=== PATIENT | male | born 1975 | race African-American/Black ===

== ENCOUNTER 2018-01-21 23:16 | Emergency (ER) | payer BC, OTHER ==
[~2018-01-21] VITALS: Ht 185.4 cm; Wt 120.2 kg
--- NOTE | 2018-01-21 23:55 | NUR ---
TO ROOM 4B FOR ER EVAL
--- NOTE | 2018-01-22 00:05 | NUR ---
ERMD AT BEDSIDE TALKING TO PT
== END 2018-01-22 00:30 | disposition home or self-care (01) ==
LOC: ER 23:18
DX: J20.8 Acute bronchitis due to other specified organisms (principal); B96.89 Other specified bacterial agents as the cause of diseases classified elsewhere
CPT/HCPCS: A4663

== ENCOUNTER 2020-09-13 06:05 | Emergency (ER) | payer BC, OTHER ==
[~2020-09-13] VITALS: Ht 185.4 cm; Wt 117.9 kg
--- NOTE | 2020-09-13 06:38 | NUR ---
at bedside for assessment
[2020-09-13] MEDS ORDERED: IBUPROFEN 600 MG TABLET PO ONE (07:00)
[2020-09-13] MEDS ORDERED: LIDOCAINE 5% PATCH TD ONE ×2 (07:00→07:15)
[2020-09-13] MEDS ORDERED: ACETAMINOPHEN 325 MG TABLET PO ONE (07:00)
[2020-09-13] MEDS ORDERED: IBUPROFEN 600 MG TABLET ONE (07:15)
[2020-09-13] MEDS ORDERED: ACETAMINOPHEN 325 MG TABLET ONE (07:16)
[2020-09-13 07:22] LABS: *BILIRUBIN,URIN NEGATIVE (NEGATIVE); *BLOOD, URINE NEGATIVE (NEGATIVE); *CLARITY,URINE CLEAR (CLEAR); *COLOR,URINE YELLOW (YELLOW); *KETONES,URINE NEGATIVE (NEGATIVE); *UROBILINOGEN,URINE 0.2 E.U./dl (NORMAL); LEUKOCYTE ESTERASE ,URINE NEGATIVE (NEGATIVE); NITRITE, URINE NEGATIVE (NEGATIVE); PH,URINE 5.5 (5.0-8.0); UGLUCOSE NEGATIVE (NEGATIVE)
--- NOTE | 2020-09-13 07:33 | NUR ---
PT WAS D/C'd TO HOME AFTER DR WILSON EVALUATION D/C INSTRUCTIONS GIVEN TO THE PT BY DR WILSON.
[2020-09-13 07:36] VITALS: BP 153/85
== END 2020-09-13 07:41 | disposition home or self-care (01) ==
LOC: ER 06:05
DX: M54.5 Low back pain (principal); X50.0XXA Overexertion from strenuous movement or load, initial encounter; Y93.B2 Activity, push-ups, pull-ups, sit-ups; Y92.019 Unspecified place in single-family (private) house as the place of occurrence of the external cause; R03.0 Elevated blood-pressure reading, without diagnosis of hypertension
CPT/HCPCS: A4663

== ENCOUNTER 2022-10-05 09:04 | Emergency (ER) | payer BC, OTHER ==
[~2022-10-05] VITALS: Ht 185.4 cm; Wt 120.2 kg
--- NOTE | 2022-10-05 09:34 | NUR ---
PT SEEN AND EVALUATED BY DR THORNTON
[2022-10-05] MEDS ORDERED: NAPR-1164 PO (10:40)
[2022-10-05] MEDS ORDERED: CYCL10TA9 PO (10:40)
[2022-10-05 10:49] VITALS: BP 120/78
--- NOTE | 2022-10-05 10:50 | NUR ---
Patient discharged to home in stable condition. Written and verbal after care instructions given. Patient verbalizes understanding of instructions. Stressed follow up or return to ER for worsening s/s.
== END 2022-10-05 10:50 | disposition home or self-care (01) ==
LOC: ER 09:04
DX: S33.5XXA Sprain of ligaments of lumbar spine, initial encounter (principal); S23.3XXA Sprain of ligaments of thoracic spine, initial encounter; V49.9XXA Car occupant (driver) (passenger) injured in unspecified traffic accident, initial encounter; Y92.410 Unspecified street and highway as the place of occurrence of the external cause
CPT/HCPCS: 72072; 72100; A4663

== ENCOUNTER 2023-09-11 23:43 | Emergency (ER) | payer OTHER ==
[~2023-09-11] VITALS: Ht 185.4 cm; Wt 108.9 kg
[~2023-09-11 23:43] MED LIST: CYCL10TA9 PO; NAPR-1164 PO
[2023-09-12] MEDS ORDERED: CHOLECALCIFEROL 1,000 UNIT TABLET PO SCH (00:30)
[2023-09-12] MEDS ORDERED: CHOLECALCIFEROL 1,000 UNIT TABLET ONE (00:39)
[2023-09-12] MEDS ORDERED: ACET1TAB23 PO (00:45)
[2023-09-12 00:47] LABS: EOSINOPHILS # (AUTO) 0.1 K/uL (0.0-0.7); EOSINOPHILS % (AUTO) 1.3 % (0.0-7.0); HEMATOCRIT 46.8 % (36.7-47.1); HEMOGLOBIN 15.8 g/dL (12.5-16.3); LYMPHOCYTES # (AUTO) 0.6 K/uL (0.8-4.8); MEAN CORPUSCULAR HEMOGLOBIN 29.8 uug (23.8-33.4); MEAN CORPUSCULAR HGB CONC 34 g/dL (32.5-36.3); MEAN CORPUSCULAR VOLUME 88.2 fL (73.0-96.2); MONOCYTES # (AUTO) 0.6 K/uL (0.1-1.30); MONOCYTES % (AUTO) 11.8 % (0.0-11.0); NEUTROPHILS # (AUTO) 3.5 K/uL (1.8-8.9); NEUTROPHILS % (AUTO) 73.9 % (38.5-71.5); PLATELET COUNT (AUTO) 169 K/uL (152-348); RED CELL DISTRIBUTION WIDTH 13.6 % (12.1-16.2); WHITE BLOOD COUNT (AUTO) 4.8 K/uL (3.6-10.2)
[2023-09-12 00:56] LABS: DIFFERENTIAL COMMENT 1
[2023-09-12 00:59] LABS: CALCIUM 9.1 mg/dL (8.5-10.1); CARBON DIOXIDE 29 mmol/L (21-32); CHLORIDE 101 mmol/L (98-107); CREATININE 1.3 mg/dL (0.6-1.3); GLUCOSE 127 mg/dL (74-106); POTASSIUM 4.2 mmol/L (3.5-5.1); SODIUM SERUM 135 mmol/L (136-145); UREA NITROGEN, BLOOD 14 mg/dL (7-18)
[2023-09-12 01:15] LABS: *BILIRUBIN,URIN NEGATIVE (NEGATIVE); *BLOOD, URINE 1+ (NEGATIVE); *CLARITY,URINE CLEAR (CLEAR); *COLOR,URINE YELLOW (YELLOW); *KETONES,URINE NEGATIVE (NEGATIVE); *PROTEIN,URINE 1+ (NEGATIVE); *UROBILINOGEN,URINE 0.2 E.U./dl (NORMAL); LEUKOCYTE ESTERASE ,URINE NEGATIVE (NEGATIVE); NITRITE, URINE NEGATIVE (NEGATIVE); PH,URINE 5.5 (5.0-8.0); UGLUCOSE NEGATIVE (NEGATIVE)
[2023-09-12 01:17] LABS: ALANINE AMINOTRANSFERASE 35 U/L (16-63); ALBUMIN 3.7 g/dL (3.4-5.0); ALKALINE PHOSPHATASE 59 U/L (50-136); ASPARTATE AMINOTRANSFERASE 25 U/L (15-37); FERRITIN 241 ng/mL (26-388); TOTAL PROTEIN, SERUM 7.8 g/dL (6.4-8.2)
[2023-09-12 01:24] LABS: BACTERIA,URINE NONE SEEN /HPF (NONE SEEN); SQUAMOUS EPITHELIAL CELL,UR NONE SEEN /HPF (NONE SEEN); WBC,URINE NONE SEEN /HPF (0-3)
[2023-09-12 02:40] VITALS: BP 139/83; TEMP 98.9; O2SAT 96
== END 2023-09-12 02:00 | disposition home or self-care (01) ==
LOC: ER 23:49
DX: U07.1 COVID-19 (principal); R07.89 Other chest pain; Z88.0 Allergy status to penicillin; Z79.899 Other long term (current) drug therapy
CPT/HCPCS: 36415; 71045; 84484; 85025; 93005; A4606; A4663

== ENCOUNTER 2025-08-31 09:09 | Emergency (ER) | payer OTHER ==
[~2025-08-31] VITALS: Ht 185.4 cm; Wt 104.3 kg
[~2025-08-31 09:09] MED LIST changes: +ACET1TAB23 PO
[2025-08-31 09:28] VITALS: BP 124/79
[2025-08-31 10:31] VITALS: BP 122/77; O2SAT 97
[2025-08-31] MEDS ORDERED: CHLO25CA22 PO (11:14)
== END 2025-08-31 10:31 | disposition home or self-care (01) ==
LOC: ER 09:09
DX: H93.11 Tinnitus, right ear (principal); Z88.0 Allergy status to penicillin
CPT/HCPCS: A4606; A4663